=== PATIENT | female | born 1995 | race African-American/Black ===

== ENCOUNTER 2017-10-03 15:10 | Emergency (ER) | payer OTHER ==
[~2017-10-03] VITALS: Ht 193 cm; Wt 100.4 kg
[2017-10-03 15:14] VITALS: TEMP 36.8; Ht 193 cm; Wt 100.4 kg
[2017-10-03] MEDS ORDERED: SODIUM CHLORIDE 0.9% 500ML 500 ML IV STA (16:00)
[2017-10-03] MEDS ORDERED: KETOROLAC TROMETHAMINE 30 MG/ML VIAL IV STA (16:00)
[2017-10-03] MEDS ORDERED: OPTIRAY 320 IV PRN (16:15)
--- NOTE | 2017-10-03 16:16 | EMERGENCY ROOM VISIT NOTE ---
History First contact with patient: 15:45 Chief Complaint: CHEST PAIN Stated Complaint: CHEST PAIN,LEFT NECK PAIN WHEN INHALE/EXHALTE Nursing Triage Summary: Patient with c/o left chest pain radiating to back for 3 days. States when she inhales she gets pain in her neck . Patient with cough and states she feels like she is getting a cold. History of Present Illness The patient is a 21 year old female who presents to the Emergency Room with complaints of left-sided chest pain for the last 3 days. The pain radiates to her neck and back. It is worse with deep inspiration and coughing. She denies any fever or chills. She does not feel short of breath. She denies any leg pain. She does not smoke. It does not seem to be related to exertion. No recent long travel. No nausea or dizziness. She denies any heart palpitations. Review of Systems 10 system review performed and negative unless noted in HPI or below Past Medical/Surgical History Asthma Social History Smoking Status: Never Smoker Current/Historical Medications Scheduled Acetaminophen (Tylenol), 500 MG PO PRN Physical Exam Vital Signs Date Time Temp Pulse Resp B/P (MAP) Pulse Ox O2 Delivery O2 Flow Rate FiO2 10/03/17 18:38 83 18 105/74 100 10/03/17 17:08 93 10/03/17 16:37 100 Room Air 10/03/17 16:37 72 18 107/86 100 Room Air 10/03/17 15:16 Room Air 10/03/17 15:14 36.8 100 16 143/88 98 Room Air Physical Exam VITALS: Vitals are noted on the nurse's note and reviewed by myself. Vital signs stable. GENERAL: 21-year-old female, in no acute distress, nondiaphoretic, well- developed well-nourished. SKIN: The skin was without rashes, erythema, edema, or bruising. HEAD: Normocephalic atraumatic. MOUTH: Mucous membranes moist. NECK: Supple without nuchal rigidity. No lymphadenopathy. Cervical spine is nontender. No JVD. HEART: Regular rate and rhythm without murmurs gallops or rubs. No tenderness over the thorax LUNGS: Clear to auscultation bilaterally without wheezes, rales or rhonchi. No accessory muscle use. ABDOMEN: Positive bowel sounds x 4.Soft, nontender, without organomegaly. No guarding or rebound tenderness. MUSCULOSKELETAL: No muscle atrophy, erythema, or edema noted. Strength 5/5 throughout. NEURO: Patient was alert and oriented to person place and time. Normal sensation to touch. No focal neurological deficits. Medical Decision & Procedures ER Provider Diagnostic Interpretation: CT chest IMPRESSION: 1. No evidence for pulmonary embolus. 2. A single mildly enlarged left axillary lymph node. This is of uncertain clinical significance. Consider follow-up ultrasound in one month to ensure resolution. Electronically signed by: Bo Palmer M.D. 10/03/2017 6:06 PM Dictated Date/Time: 10/03/2017 5:42 PM Laboratory Results 10/03/17 16:21 Red Blood Count 5.51, Mean Corpuscular Volume 74.4, Mean Corpuscular Hemoglobin 24.1, Mean Corpuscular Hemoglobin Concent 32.4, Mean Platelet Volume 9.5, Neutrophils (%) (Auto) 72.4, Lymphocytes (%) (Auto) 19.8, Monocytes (%) (Auto) 6.4, Eosinophils (%) (Auto) 0.8, Basophils (%) (Auto) 0.3, Neutrophils # (Auto) 2.70, Lymphocytes # (Auto) 0.74, Monocytes # (Auto) 0.24, Eosinophils # (Auto) 0.03, Basophils # (Auto) 0.01 10/03/17 16:21 Test 10/03/17 16:15 10/03/17 16:21 Urine Test NEG (NEG) White Blood Count 3.73 K/uL (4.8-10.8) Red Blood Count 5.51 M/uL (4.2-5.4) Hemoglobin 13.3 g/dL (12.0-16.0) Hematocrit 41.0 % (37-47) Mean Corpuscular Volume 74.4 fL (80-100) Mean Corpuscular Hemoglobin 24.1 pg (25-34) Mean Corpuscular Hemoglobin Concent 32.4 g/dl (32-36) Platelet Count 265 K/uL (130-400) Mean Platelet Volume 9.5 fL (7.4-10.4) Neutrophils (%) (Auto) 72.4 % Lymphocytes (%) (Auto) 19.8 % Monocytes (%) (Auto) 6.4 % Eosinophils (%) (Auto) 0.8 % Basophils (%) (Auto) 0.3 % Neutrophils # (Auto) 2.70 K/uL (1.4-6.5) Lymphocytes # (Auto) 0.74 K/uL (1.2-3.4) Monocytes # (Auto) 0.24 K/uL (0.11-0.59) Eosinophils # (Auto) 0.03 K/uL (0-0.5) Basophils # (Auto) 0.01 K/uL (0-0.2) RDW Standard Deviation 40.5 fL (36.4-46.3) RDW Coefficient of Variation 15.0 % (11.5-14.5) Immature Granulocyte % (Auto) 0.3 % Immature Granulocyte # (Auto) 0.01 K/uL (0.00-0.02) Red Blood Cell Morphology Unremarkable Anion Gap 3.0 mmol/L (3-11) Est Creatinine Clear Calc Drug Dose 142.1 ml/min Estimated GFR () 107.4 Estimated GFR (Non- 92.7 BUN/Creatinine Ratio 11.7 (10-20) Calcium Level 9.0 mg/dl (8.5-10.1) Total Bilirubin 0.4 mg/dl (0.2-1) Aspartate Amino Transf (AST/SGOT) 13 U/L (15-37) Alanine Aminotransferase (ALT/SGPT) 27 U/L (12-78) Alkaline Phosphatase 61 U/L (45-117) Total Creatine Kinase 137 U/L (26-192) Creatine Kinase MB < 0.5 ng/ml (0.5-3.6) Creatine Kinase MB Ratio (0-3.0) Troponin I < 0.015 ng/ml (0-0.045) Total Protein 8.3 gm/dl (6.4-8.2) Albumin 3.9 gm/dl (3.4-5.0) Globulin 4.4 gm/dl (2.5-4.0) Albumin/Globulin Ratio 0.9 (0.9-2) Lipase 218 U/L (73-393) Medications Administered Medications (Trade) Dose Ordered Sig/Leland Route Start Time Stop Time Status Last Admin Dose Admin Ketorolac Tromethamine (Toradol Inj) 30 mg NOW STAT IV 10/03/17 16:00 10/03/17 16:03 DC 10/03/17 16:37 30 MG Sodium Chloride 500 ml @ 999 mls/hr Q31M STAT IV 10/03/17 16:00 10/03/17 16:30 DC 10/03/17 16:22 999 MLS/HR ECG Per My Interpretation Indication: chest pain Rate (beats per minute): 94 Rhythm: sinus with SA Comparison ECG Date: no prior available ED Course Patient was seen and examined Vital signs including blood pressure were reviewed medications list was verified with patient Labs were obtained, and a saline lock was established an EKG was performed. The patient was put on a monitor. The patient was medicated with Toradol 30 mg IV Upon reevaluation, the pain was much improved. We discussed her workup. She voiced understanding, was comfortable being discharged home. I reviewed discharge instructions the patient. They voiced understanding and had no further questions. Medical Decision Differential diagnosis: Pulmonary embolus, costochondritis, acute myocardial infarction, cardiac arrhythmia, anemia, thyroid abnormality, pneumothorax, pneumonia, bronchitis, pericarditis, electrolyte imbalance This patient is a 21-year-old female presents to the emergency department with complaints of pleuritic chest pain. Her EKG reveals no signs of ischemia. Cardiac enzymes are within normal limits. I ordered a CT of the chest due to the pleuritic nature of the pain. This was negative for any signs of a PE. I believe the patient likely has musculoskeletal pain. She will be discharged home with instructions to take ibuprofen every 6 hours as needed for pain. She was encouraged to follow-up with her primary care physician. She agrees to return with any worsening symptoms This chart was completed in part utilizing [employer] Voice Recognition software. Attempts were made to minimize the grammatical errors, random word insertions, pronoun errors and incomplete sentences. Any formal questions or concerns about the content, text or information contained within the body of this dictation should be directly addressed to the provider for clarification. Medication Reconcilliation Current Medication List: was personally reviewed by me Blood Pressure Screening Patient's blood pressure: Elevated blood pressure Blood pressure disposition: Did not require urgent referral Impression Primary Impression: Chest pain Departure Information Dispostion Home / Self-Care Condition GOOD Referrals No Doctor, Assigned (PCP) Patient Instructions My [facility] Additional Instructions You were evaluated in the emergency department for chest pain. A CAT scan did not reveal any signs of a blood clot. You do have one small lymph node that is enlarged in your left armpit. This should be rechecked in approximately 6 weeks. Please take ibuprofen 600 mg every 6 hours as needed for pain Please follow-up with your primary care physician within the next 24-48 hours for a recheck Do not hesitate to return to the emergency department with any new, worsening or concerning symptoms Work Instructions Return To Work: 1 day
[2017-10-03 16:39] LABS: BASO % 0.3 %; BASO ABS # 0.01 K/uL (0-0.2); EOS % 0.8 %; EOS ABS # 0.03 K/uL (0-0.5); HEMOGLOBIN 13.3 g/dL (12.0-16.0); IG# 0.01 K/uL (0.00-0.02); LYMPH % 19.8 %; LYMPH ABS # 0.74 K/uL (1.2-3.4); MEAN CELL VOLUME 74.4 fL (80-100); MEAN CORPUSCULAR HEMOGLOBIN 24.1 pg (25-34); MEAN CORPUSCULAR HGB CONC 32.4 g/dl (32-36); MEAN PLATELET VOLUME 9.5 fL (7.4-10.4); MONO % 6.4 %; MONO ABS # 0.24 K/uL (0.11-0.59); NEUT % 72.4 %; PLATELET COUNT 265 K/uL (130-400); RED CELL DISTRIBUTION WIDTH SD 40.5 fL (36.4-46.3); WHITE BLOOD COUNT 3.73 K/uL (4.8-10.8)
[2017-10-03 16:56] LABS: ALBUMIN 3.9 gm/dl (3.4-5.0); ALT/SGPT 27 U/L (12-78); AST/SGOT 13 U/L (15-37); BLOOD UREA NITROGEN 10 mg/dl (7-18); CARBON DIOXIDE 29 mmol/L (21-32); GLUCOSE 74 mg/dl (70-99); LIPASE 218 U/L (73-393); POTASSIUM 3.7 mmol/L (3.5-5.1); SODIUM 137 mmol/L (136-145)
[2017-10-03 17:01] LABS: ALKALINE PHOSPHATASE 61 U/L (45-117); CKMB < 0.5 ng/ml (0.5-3.6); TOTAL PROTEIN 8.3 gm/dl (6.4-8.2)
[2017-10-03] MEDS ORDERED: ACET-1256 PO (17:14)
--- NOTE | 2017-10-03 18:07 | DIAGNOSTIC IMAGING REPORT ---
CHEST CTA for PULMONARY ARTERIES CT DOSE: 522.57 mGy.cm HISTORY: Left-sided chest pain. TECHNIQUE: Multiaxial CT images of the chest were performed following the intravenous administration of contrast to evaluate the pulmonary arteries. Maximal intensity projection images were also obtained. A dose lowering technique was utilized adhering to the principles of ALARA. COMPARISON STUDY: None. FINDINGS: There is a normal caliber thoracic aorta with no evidence for dissection. There is no evidence for pulmonary embolus. No pleural effusions. No pneumothorax. The liver and spleen are unremarkable. No mediastinal or hilar lymphadenopathy. The central airways are patent. The lungs are clear. There is a single mildly enlarged left axillary lymph node measuring 2.2 x 1.3 cm. There is a 4mm subpleural nodule on the left major fissure on image 122. This is likely benign. Otherwise, the lungs are clear. IMPRESSION: 1. No evidence for pulmonary embolus. 2. A single mildly enlarged left axillary lymph node. This is of uncertain clinical significance. Consider follow-up ultrasound in one month to ensure resolution. Electronically signed by: Bo Palmer M.D. 10/03/2017 6:06 PM Dictated Date/Time: 10/03/2017 5:42 PM
[2017-10-03 18:38] VITALS: BP 105/74; PULSE 83; O2SAT 100
== END 2017-10-03 18:39 | disposition home or self-care (01) ==
LOC: C.EDB 15:12
DX: R07.9 Chest pain, unspecified (principal); R59.0 Localized enlarged lymph nodes; M54.2 Cervicalgia; R05 Cough